=== PATIENT | male | born 1960 | race Caucasian/White ===

== ENCOUNTER → 2021-09-11 | Outpatient (CLI) | payer BC ==
[2021-09-11 15:09] LABS: Basophils # (A) 0.05 X 10*3/uL (0.00-0.10); Basophils % (A) 0.8 %; Eosinophils # (A) 0.27 X 10*3/uL (0.04-0.35); Eosinophils % (A) 4.3 %; HCT 45.2 % (39.6-50.0); HGB 14.6 g/dL (13.0-17.0); Immature Grans, Automated 0.3 %; Lymphocytes # (A) 1.43 X 10*3/uL (0.90-5.00); Lymphocytes % (A) 22.9 %; MCH 29.7 pg (27.0-32.0); MCHC 32.3 g/dL (32.0-37.0); MCV 91.9 fL (80.0-97.0); Monocytes # (A) 0.77 X 10*3/uL (0.20-1.00); Monocytes % (A) 12.3 %; NRBC Per 100 WBC 0 /100 WBCS (0.0-0.0); Neutrophils # (A) 3.71 X 10*3/uL (1.80-7.70); Neutrophils % (A) 59.4 %; Platelet Count 278 X 10*3/uL (140-440); RBC 4.92 X 10*6/uL (4.40-5.60); RDW 13.5 % (11.5-14.5); WBC 6.25 X 10*3/uL (4.50-10.00)
[2021-09-11 15:10] LABS: African American GFR (CKD) 95.1 (60.0-200.0); Anion Gap 11.3 mmol/L (10.00-18.00); BUN/Creat Ratio 14.5 Ratio (12.00-20.00); Blood Urea Nitrogen 14.5 mg/dL (9.0-27.0); Calcium 9.5 mg/dL (8.7-10.3); Carbon Dioxide 25.7 mmol/L (20.0-27.5); Potassium 4.9 mmol/L (3.5-5.5)
== END | disposition home or self-care (01) ==
LOC: LABPAT 09:30
PROVIDERS: ATTEND Urology
DX: Z01.812 Encounter for preprocedural laboratory examination (principal); N40.1 Benign prostatic hyperplasia with lower urinary tract symptoms
CPT/HCPCS: 36415; 80048; 85025

== ENCOUNTER 2021-09-16 12:30 | Day surgery (SDC) | payer BC ==
[2021-09-14 12:09] VITALS: BMI 25.0
--- NOTE | 2021-09-16 07:49 | P.GSHP ---
History of Present Illness H&P Date: 09/16/21 Chief Complaint: Weak urinary stream The patient is a 61-year-old white male with obstructive voiding symptoms. Specifically, he reports diminished urinary stream, hesitancy, and straining. The postvoid residuals 233 mL despite taking tamsulosin. The tamsulosin causes dizziness. The patient was offered alternative treatment options, including an alternative alpha-emily, 5 alpha reductase inhibitor, minimally invasive therapies, and transurethral resection of the prostate (TURP). After weighing the pros and cons of each option, he has elected to undergo the latter. - Gastrointestinal Gastrointestinal: Reports heartburn - Genitourinary (Male) Genitourinary: Reports as per HPI Past Medical History Past Medical History: GERD/Reflux, Prostate Disorder Additional Past Medical History / Comment(s): ENLARGED PROSTATE History of Any Multi-Drug Resistant Organisms: None Reported Past Surgical History: Appendectomy, Back Surgery, Joint Replacement Additional Past Surgical History / Comment(s): BILAT NICHOLE. COLONOSCOPY/EGD Past Anesthesia/Blood Transfusion Reactions: No Reported Reaction Smoking Status: Never smoker - Past Family History Father Family Medical History: Cancer Additional Family Medical History / Comment(s): LUNG Medications and Allergies Home Medications Medication Instructions Recorded Confirmed Type Dexlansoprazole [Dexilant] 60 mg PO DAILY 09/14/21 09/14/21 History Tamsulosin [Flomax] 0.4 mg PO DAILY 09/14/21 09/14/21 History Allergies Allergy/AdvReac Type Severity Reaction Status Date / Time No Known Allergies Allergy Verified 09/14/21 12:04 Surgical - Exam - General well developed, well nourished, no distress - Respiratory normal respiratory effort - Abdomen Abdomen: soft, non tender, no guarding, no rigid, no rebound - Genitourinary normal penis with no external lesions, testicles non-tender - Rectum Normal anal sphincter tone, no rectal masses. The prostate is moderately enlarged but smooth. - Psychiatric oriented to time, oriented to person, oriented to place, speech is normal, memory intact Assessment and Plan (1) Benign prostatic hyperplasia with lower urinary tract symptoms Status: Acute Code(s): N40.1 - BENIGN PROSTATIC HYPERPLASIA WITH LOWER URINARY TRACT SYMP SNOMED Code(s): 282723033 Plan: Cystoscopy, TURP: I discussed the options concerning surgery versus medication. I advised him with regard to TURP as opposed to minimally invasive procedures such as Urolift and TUMT. Potential risks were discussed, including anesthesia, bleeding, infection, retrograde ejaculation, incontinence, erectile dysfunction, and vesical neck contracture.
[~2021-09-16 12:30] MED LIST: LACTATED RINGERS 1,000 ML IV SCH
[2021-09-16] MEDS ORDERED: ONDANSETRON 4 MG/2 ML VIAL ONE (13:04)
[2021-09-16] MEDS ORDERED: DEXAMETHASONE SOD PHOSPHATE 4 MG/ML 1 ML VIAL IVP ONE (13:07)
[2021-09-16] MEDS ORDERED: ePHEDrine 50 MG/ML 1 ML VIAL ONE (13:16)
[2021-09-16] MEDS ORDERED: MIDAZOLAM 2 MG/2 ML VIAL ONE (13:16)
[2021-09-16] MEDS ORDERED: fentaNYL (PF) 50 MCG/ML 2 ML AMP ONE (13:16)
[2021-09-16] MEDS ORDERED: PROPOFOL 10 MG/ML 20 ML VIAL IV ONE (13:16)
[2021-09-16] MEDS ORDERED: SUCCINYLCHOLINE CHLORIDE 100 MG/5 ML SYR IV ONE (13:16)
[2021-09-16] MEDS ORDERED: ROCURONIUM 10 MG/ML (5 ML VIAL) IV ONE (13:16)
[2021-09-16] MEDS ORDERED: LIDOCAINE 2% INJ 20 MG/ML (2 ML VIAL) ONE (13:16)
[2021-09-16] MEDS ORDERED: LACTATED RINGERS 1,000 ML IV ONE (14:29)
[2021-09-16 15:04] VITALS: TEMP 96.9
--- NOTE | 2021-09-16 15:14 | P.OP ---
Date of Procedure: 09/16/21 Preoperative Diagnosis: BPH with obstruction Postoperative Diagnosis: Same Procedure(s) Performed: Cystoscopy, bipolar transurethral resection of prostate (TURP) Anesthesia: JG Surgeon: Leon Khan Estimated Blood Loss (ml): 30 IV fluids (ml): 1,000 Pathology: other (Prostate chips) Condition: stable Disposition: PACU Indications for Procedure: The patient is a 61-year-old white male with obstructive voiding symptoms. Specifically, he reports diminished urinary stream, hesitancy, and straining. The postvoid residual was 233 mL despite taking tamsulosin. The tamsulosin causes dizziness, and he was unable to tolerate alfuzosin. The patient was offered alternative treatment options, including an alternative alpha-emily, 5 alpha reductase inhibitor, minimally invasive therapies, and transurethral resection of the prostate (TURP). After weighing the pros and cons of each option, he has elected to undergo the latter. Operative Findings: Trilobar BPH with obstructing median lobe. Description of Procedure: The patient was taken in the operating room and placed in the dorsolithotomy position. The external genitalia was prepped and draped sterilely. The 25- [place] ACMI resectoscope sheath was introduced into the bladder. The bladder was inspected. Both ureteral orifices were of normal anatomic location and configuration, and clear urine effluxed from both. No tumors or foreign bodies were seen. Examination of the prostate revealed complete obstruction with a trilobar configuration. Using the bipolar cutting loop, the prominent median lobe was resected. Next, the lateral lobes were resected down to the surgical capsule. The floor of the prostate was then resected, proximal to the verumontanum. The anterior tissue was not resected, as the prostatic fossa was wide open. The residual apical tissue was then carefully resected, with care taken to avoid injury to the external urinary sphincter. The resection was carried down to the surgical capsule in all areas of resection. The prostatic fossa was then carefully examined, and any areas of bleeding were controlled with electrocautery. Excellent hemostasis was attained. The resectoscope was withdrawn into the bulbous urethra. The external urinary sphincter remained intact. The Pipeliner CRM evacuator was used to remove all prostate chips from the bladder. These were saved and sent for pathologic examination. The resectoscope was removed, and an 18 [place] Ortiz catheter was placed. The return was essentially clear. The patient tolerated the procedure well was taken to the recovery room in stable condition.
[2021-09-16 15:38] VITALS: RESP 18
[2021-09-16 16:11] VITALS: BP 141/73; PULSE 78
[2021-09-16] MEDS ORDERED: ACETAMINOPHEN TAB 500 MG TAB ONE (16:24)
== END 2021-09-16 17:12 | disposition home or self-care (01) ==
LOC: OR 12:30
PROVIDERS: ATTEND Urology
DX: N40.1 Benign prostatic hyperplasia with lower urinary tract symptoms (principal); N13.8 Other obstructive and reflux uropathy; K21.9 Gastro-esophageal reflux disease without esophagitis; Z90.49 Acquired absence of other specified parts of digestive tract
CPT/HCPCS: 52601; 88305; J2250; J1100; J0690; J2405; J3010; J0330; J2704; J2001

== ENCOUNTER → 2021-11-27 | Outpatient (CLI) | payer BC ==
--- NOTE | 2021-11-27 08:56 | CT ---
EXAMINATION TYPE: CT foot LT wo con CT DLP: 250.2 mGycm, Automated exposure control for dose reduction was used. DATE OF EXAM: 11/27/2021 7:06 AM COMPARISON: None CLINICAL INDICATION:Male, 61 years old with history of M25.572 Pain L ankle, Left lateral foot/ankle pain after injury. TECHNIQUE: Axial images were obtained of the left foot without the use of IV contrast. Additional co luis and sagittal reformatted images and soft tissue and bone window were obtained for review. 3-D r econstruction was created on a separate workstation. FINDINGS: Well-corticated osseous bodies are seen in the expected location of the anterior talofibula r ligament. This is favored to be sequela of prior injury. The posterior tibiofibular ligament appear s intact. Os peroneum is present within additional calcification which could also be an additional ac cessory ossicle versus sequela of remote injury. Calcaneus plantar spurring and Achilles enthesophyte are present. There is no evidence of fracture, subluxation, or dislocation. There is soft tissue declan ma throughout the foot. No focal muscular atrophy. No radiopaque foreign body identified. IMPRESSION: 1. No evidence of acute fracture. 2. Remote appearing injury to the anterior tibiofibular ligament 3. Mild soft tissue edema throughout the foot likely sequela of underlying soft tissue injury. Consi arturo MRI if clinically warranted.
== END | disposition home or self-care (01) ==
LOC: RADCTMAIN 06:43
PROVIDERS: ATTEND Orthopaedic Surgery
DX: S99.922A Unspecified injury of left foot, initial encounter (principal); M79.672 Pain in left foot

== ENCOUNTER 2022-01-27 07:29 | Emergency (ER) | payer BC ==
[2022-01-27 07:42] VITALS: TEMP 98.4
--- NOTE | 2022-01-27 07:45 | ED ---
General Adult HPI - General Chief complaint: Abdominal Pain Stated complaint: abd pain Time Seen by Provider: 01/27/22 07:45 Source: patient Mode of arrival: ambulatory Limitations: no limitations - History of Present Illness Initial comments: Patient is a 62-year-old male with past medical history remarkable for acid reflux who presents emergency Department complaining of left upper abdominal pain that started this morning. Describes it as an achy, throbbing sensation located in the left upper quadrant. Since to be just under his rib. Denies any trauma. Does have a history of appendectomy at a young age. No other abdominal surgeries. Has a history of intermittent constipation. Last bowel movement was 2 days ago and was nonbloody normal for him. Nurses mild nausea but no episodes of emesis. Denies any fevers, chills, cough. Denies any sick contacts. Denies any chest pain. Denies any shortness of breath. His no other acute complaints at this time. Presents for evaluation of his abdominal pain. No back pain. No dysuria or hematuria. - Related Data Home Medications Medication Instructions Recorded Confirmed Dexlansoprazole [Dexilant] 60 mg PO DAILY 09/14/21 01/27/22 Ibuprofen [Motrin] 800 mg PO Q8H PRN 01/27/22 01/27/22 Previous Rx's Medication Instructions Recorded Amoxic-Pot Clav 875-125Mg 1 tab PO Q12HR 5 Days #10 tab 01/27/22 [Augmentin 875-125] Dicyclomine [Bentyl] 10 mg PO TID PRN 7 Days #21 capsule 01/27/22 HYDROcodone/APAP 5-325MG [[place] 1 tab PO Q6HR PRN 3 Days #12 tab 01/27/22 5-325] Allergies Allergy/AdvReac Type Severity Reaction Status Date / Time No Known Allergies Allergy Verified 01/27/22 10:15 Review of Systems ROS Statement: Those systems with pertinent positive or pertinent negative responses have been documented in the HPI. Review of Systems: CONST: Denies fever EYES: Denies blurry vision ENT: Denies nasal congestion C/V: Denies Chest pain RESP: Denies shortness of breath GI: Endorses abdominal pain : Denies dysuria SKIN: Denies rash. MSK: Denies joint pain. NEURO: Denies headache ROS Other: All systems not noted in ROS Statement are negative. Past Medical History Past Medical History: GERD/Reflux History of Any Multi-Drug Resistant Organisms: None Reported Past Surgical History: Back Surgery, Orthopedic Surgery, Prostate Surgery Additional Past Surgical History / Comment(s): bilateral hips surgery Past Psychological History: No Psychological Hx Reported Smoking Status: Never smoker Past Alcohol Use History: Daily Past Drug Use History: None Reported General Exam - General Exam Comments Initial Comments: General: Appears in no acute distress. HEAD: Normal with no signs of head trauma. EYES: PERRLA, EOMI, conjunctiva normal, no discharge. ENT: Hearing grossly intact, normal oropharynx. RESPIRATORY: Clear breath sounds bilaterally. No wheezes, rales, or rhonchi. C/V: Regular rate and rhythm. S1 and S2 auscultated, no edema, peripheral pulses 2+ and intact throughout ABD: Abdomen soft, nondistended. Tender to palpation in the left upper/mid quadrant. Somewhat in the periumbilical region. No guarding. No rebound tenderness. No peritoneal signs. No CVA tenderness to percussion. EXT: Normal range of motion, no obvious deformity SKIN: No rashes or lesions observed on exposed skin. NEURO: Alert and oriented 4. Limitations: no limitations Course Vital Signs 01/27/22 01/27/22 07:40 11:12 Temperature 98.4 F Pulse Rate 91 67 Respiratory 16 20 Rate Blood Pressure 109/58 99/79 O2 Sat by Pulse 97 100 Oximetry Medical Decision Making - Medical Decision Making Based on the patient's presentation and physical exam, I'm concerned for acute intra-abdominal process for the patient's current pain. Cannot rule out atypical cardiac etiology, however lower suspicion. We'll obtain a screening EKG in addition to abdominal laboratory studies and imaging. Likely will require CT imaging. Patient will be symptomatically treated with IV fluids, analgesia, antiemetics. He was in agreement with this plan. Vital signs within normal limits. Screening EKG shows no signs of acute ischemia. Laboratory studies are remarkable for a mild leukocytosis of 15.4 which could be reactive. Remainder of the labs are unremarkable. Chest x-ray shows no acute cardiopulmonary process. KUB shows a single prominent small bowel loop in the mid to lower abdomen. I discussed the findings with the patient. Recommended CT abdomen and pelvis. He was in agreement this plan. Pain is under control at this time. Vital signs remained within normal limits. CT abdomen and pelvis showed mild inflammatory changes in the posterior right hemipelvis as well as ileal wall thickening at the terminal ileum. There is no free air. No abscess. No other obvious findings. Rediscussed the findings on CT of nonspecific for inflammatory changes. Could relate to colitis. No other findings at this time. Patient's pain is improved. Discussed discharge home due to abdominal pain of unknown etiology and he was i n agreement this plan. He will empirically be treated with antibiotics for possible colitis as well as given pain medications and Bentyl for home. He was in agreement this plan. Discussed strict return precautions. Will follow up with his physician in one to 3 days. I will provide the patient with a prescription for Bentyl, [place], Augmentin. I instructed the patient to follow up with their PCP in the next 1-3 days. I explained that the patient should return to the emergency department if they experience any worsening symptoms. Strict return precautions were discussed with the patient. The patient expressed understanding of these instructions. I answered all questions that the patient had. The patient was discharged home in good condition with their prescriptions and follow up information. - Lab Data Result diagrams: 01/27/22 08:10 01/27/22 08:10 Lab Results 01/27/22 01/27/22 01/27/22 Range/Units 08:10 08:10 08:10 WBC 15.4 H (3.8-10.6) k/uL RBC 4.81 (4.30-5.90) m/uL Hgb 14.6 (13.0-17.5) gm/dL Hct 43.7 (39.0-53.0) % MCV 90.9 (80.0-100.0) fL MCH 30.4 (25.0-35.0) pg MCHC 33.4 (31.0-37.0) g/dL RDW 12.4 (11.5-15.5) % Plt Count 382 (150-450) k/uL MPV 8.2 Neutrophils % 88 % Lymphocytes % 2 % Monocytes % 6 % Eosinophils % 4 % Basophils % 0 % Neutrophils # 13.5 H (1.3-7.7) k/uL Lymphocytes # 0.3 L (1.0-4.8) k/uL Monocytes # 0.9 (0-1.0) k/uL Eosinophils # 0.5 (0-0.7) k/uL Basophils # 0.0 (0-0.2) k/uL PT 10.4 (9.0-12.0) sec INR 1.0 (<1.2) APTT 25.4 (22.0-30.0) sec Sodium 136 L (137-145) mmol/L Potassium 4.2 (3.5-5.1) mmol/L Chloride 98 (98-107) mmol/L Carbon Dioxide 26 (22-30) mmol/L Anion Gap 12 mmol/L BUN 13 (9-20) mg/dL Creatinine 1.01 (0.66-1.25) mg/dL Est GFR (CKD-EPI)AfAm >90 (>60 ml/min/1.73 sqM) Est GFR (CKD-EPI)NonAf 81 (>60 ml/min/1.73 sqM) Glucose 155 H (74-99) mg/dL Plasma Lactic Acid Keegan (0.7-2.0) mmol/L Calcium 9.1 (8.4-10.2) mg/dL Total Bilirubin 0.9 (0.2-1.3) mg/dL AST 21 (17-59) U/L ALT 17 (4-49) U/L Alkaline Phosphatase 95 (38-126) U/L Total Protein 6.9 (6.3-8.2) g/dL Albumin 4.3 (3.5-5.0) g/dL Amylase 51 (30-110) U/L Lipase 36 (23-300) U/L Urine Color Urine Appearance (Clear) Urine pH (5.0-8.0) Ur Specific [place] (1.001-1.035) Urine Protein (Negative) Urine Glucose (UA) (Negative) Urine Ketones (Negative) Urine Blood (Negative) Urine Nitrite (Negative) Urine Bilirubin (Negative) Urine Urobilinogen (<2.0) mg/dL Ur Leukocyte Esterase (Negative) Urine RBC (0-5) /hpf Urine WBC (0-5) /hpf Ur Squamous Epith Cells (0-4) /hpf Urine Bacteria (None) /hpf Urine Mucus (None) /hpf 01/27/22 01/27/22 Range/Units 08:10 08:10 WBC (3.8-10.6) k/uL RBC (4.30-5.90) m/uL Hgb (13.0-17.5) gm/dL Hct (39.0-53.0) % MCV (80.0-100.0) fL MCH (25.0-35.0) pg MCHC (31.0-37.0) g/dL RDW (11.5-15.5) % Plt Count (150-450) k/uL MPV Neutrophils % % Lymphocytes % % Monocytes % % Eosinophils % % Basophils % % Neutrophils # (1.3-7.7) k/uL Lymphocytes # (1.0-4.8) k/uL Monocytes # (0-1.0) k/uL Eosinophils # (0-0.7) k/uL Basophils # (0-0.2) k/uL PT (9.0-12.0) sec INR (<1.2) APTT (22.0-30.0) sec Sodium (137-145) mmol/L Potassium (3.5-5.1) mmol/L Chloride (98-107) mmol/L Carbon Dioxide (22-30) mmol/L Anion Gap mmol/L BUN (9-20) mg/dL Creatinine (0.66-1.25) mg/dL Est GFR (CKD-EPI)AfAm (>60 ml/min/1.73 sqM) Est GFR (CKD-EPI)NonAf (>60 ml/min/1.73 sqM) Glucose (74-99) mg/dL Plasma Lactic Acid Keegan 2.0 (0.7-2.0) mmol/L Calcium (8.4-10.2) mg/dL Total Bilirubin (0.2-1.3) mg/dL AST (17-59) U/L ALT (4-49) U/L Alkaline Phosphatase (38-126) U/L Total Protein (6.3-8.2) g/dL Albumin (3.5-5.0) g/dL Amylase (30-110) U/L Lipase (23-300) U/L Urine Color Yellow Urine Appearance Cloudy (Clear) Urine pH 5.5 (5.0-8.0) Ur Specific [place] 1.025 (1.001-1.035) Urine Protein 2+ H (Negative) Urine Glucose (UA) Negative (Negative) Urine Ketones Trace H (Negative) Urine Blood Trace H (Negative) Urine Nitrite Negative (Negative) Urine Bilirubin 1+ H (Negative) Urine Urobilinogen 6.0 (<2.0) mg/dL Ur Leukocyte Esterase Trace H (Negative) Urine RBC 1 (0-5) /hpf Urine WBC 5 (0-5) /hpf Ur Squamous Epith Cells <1 (0-4) /hpf Urine Bacteria Rare H (None) /hpf Urine Mucus Many H (None) /hpf - EKG Data -: EKG Interpreted by Me EKG Comments: 12-lead Electrocardiogram Interpretation Note EKG was reviewed and interpreted by myself. 12-lead ECG performed at 0916 is interpreted by me as revealing sinus bradycardia at a rate of 57 beats per minute. Matthews is normal. NM interval is 163 ms, QRS duration is 86 ms, QTc is 464 milliseconds.. There were no ST or T wave abnormalities to suggest myocardial ischemia or injury. R wave progression across the precordium was satisfactory. By my interpretation this EKG is non-diagnostic for acute ischemia. Disposition Clinical Impression: Abdominal pain of unknown cause Narrative: suspected colitis Disposition: HOME SELF-CARE Condition: Good Instructions (If sedation given, give patient instructions): Abdominal Pain (ED), Colitis (ED) Prescriptions: Amoxic-Pot Clav 875-125Mg [Augmentin 875-125] 1 tab PO Q12HR 5 Days #10 tab Dicyclomine [Bentyl] 10 mg PO TID PRN 7 Days #21 capsule PRN Reason: Pain HYDROcodone/APAP 5-325MG [[place] 5-325] 1 tab PO Q6HR PRN 3 Days #12 tab PRN Reason: Pain Is patient prescribed a controlled substance at d/c from ED?: Yes When asked, does pt state using other controlled substances?: No If prescribed controlled substance>3 days was MAPS reviewed?: Prescribed <3 Days If opioid is for acute pain is fill amount 7 days or less?: No If Rx opioid, was Start Talking consent form obtained?: No Referrals: Sandee Boykin DO [Primary Care Provider] - 1-2 days Time of Disposition: 10:50
[2022-01-27] MEDS ORDERED: MORPHINE SULFATE 4 MG/ML SYRINGE IV STA (07:57)
[2022-01-27] MEDS ORDERED: SODIUM CHLORIDE 0.9% 1,000 ML IV STA (07:57)
[2022-01-27] MEDS ORDERED: PANTOPRAZOLE 40 MG/10 ML VIAL IVP STA (07:57)
[2022-01-27] MEDS ORDERED: ONDANSETRON 4 MG/2 ML VIAL IVP STA (07:57)
[2022-01-27 08:24] LABS: Basophils % (A) 0 %; Eosinophils # (A) 0.5 k/uL (0-0.7); Eosinophils % (A) 4 %; HCT 43.7 % (39.0-53.0); HGB 14.6 gm/dL (13.0-17.5); Lymphocytes # (A) 0.3 k/uL (1.0-4.8); Lymphocytes % (A) 2 %; MCH 30.4 pg (25.0-35.0); MCHC 33.4 g/dL (31.0-37.0); MCV 90.9 fL (80.0-100.0); Mean Platelet Volume 8.2; Monocytes # (A) 0.9 k/uL (0-1.0); Monocytes % (A) 6 %; Neutrophils # (A) 13.5 k/uL (1.3-7.7); Neutrophils % (A) 88 %; Platelet Count 382 k/uL (150-450); RBC 4.81 m/uL (4.30-5.90); RDW 12.4 % (11.5-15.5); WBC 15.4 k/uL (3.8-10.6)
[2022-01-27 08:32] LABS: Partial Thromboplastin Time 25.4 sec (22.0-30.0); Prothrombin Time 10.4 sec (9.0-12.0)
[2022-01-27 08:38] LABS: Appearance,Urine Cloudy (Clear); Bacteria,Urine Rare /hpf; Bilirubin,Urine 1+ (Negative); Blood,Urine Trace (Negative); Color,Urine Yellow; Glucose,Urine (UA) Negative (Negative); Ketones,Urine Trace (Negative); Leukocyte Esterase,Urine Trace (Negative); Mucus,Urine Many /hpf; Nitrite,Urine Negative (Negative); PH, Urine 5.5 (5.0-8.0); Protein,Urine 2+ (Negative); RBC,Urine 1 /hpf (0-5); Specific Gravity,Urine 1.025 (1.001-1.035); Squamous Epithelial Cell,Urine <1 /hpf (0-4); WBC,Urine 5 /hpf (0-5)
[2022-01-27 08:44] LABS: ALT 17 U/L (4-49); AST 21 U/L (17-59); African American GFR (CKD) >90 (>60 ml/min/1.73 sqM); Albumin 4.3 g/dL (3.5-5.0); Alkaline Phosphatase 95 U/L (38-126); Amylase 51 U/L (30-110); Anion Gap 12 mmol/L; Blood Urea Nitrogen 13 mg/dL (9-20); Calcium 9.1 mg/dL (8.4-10.2); Carbon Dioxide 26 mmol/L (22-30); Chloride 98 mmol/L (98-107); Glucose 155 mg/dL (74-99); Lipase 36 U/L (23-300); Non-African American GFR(CKD) 81 (>60 ml/min/1.73 sqM); Potassium 4.2 mmol/L (3.5-5.1); Sodium 136 mmol/L (137-145); Total Bilirubin 0.9 mg/dL (0.2-1.3); Total Protein 6.9 g/dL (6.3-8.2)
--- NOTE | 2022-01-27 08:55 | XR ---
EXAMINATION TYPE: XR chest 1V portable DATE OF EXAM: 01/27/2022 COMPARISON: NONE HISTORY: lower chest pain TECHNIQUE: Single frontal view of the chest is obtained. FINDINGS: There is no focal air space opacity, pleural effusion, or pneumothorax seen. The cardiac silhouette size is within normal limits. The osseous structures are intact. Hyperinflation of the l ungs. There is hypertrophic and degenerative change of the spine. No overt failure. IMPRESSION: No acute process. Correlate for COPD.
--- NOTE | 2022-01-27 09:00 | XR ---
EXAMINATION TYPE: XR KUB DATE OF EXAM: 01/27/2022 COMPARISON: NONE HISTORY: Pain TECHNIQUE: One view abdominal series FINDINGS: The osseous structures are intact. The bowel gas pattern is nonspecific. Lung bases are clear. Hyper trophic and degenerative change of the spine. Single prominent bowel loop in the midabdomen. Postsurg ical changes bilateral hip with osteitis pubis is antegrade. IMPRESSION: 1. Nonspecific abdomen. Single prominent small bowel loop in the mid to lower abdomen can be on the basis of localized ileus.
--- NOTE | 2022-01-27 10:38 | CT ---
EXAMINATION TYPE: CT abdomen pelvis w con DATE OF EXAM: 01/27/2022 COMPARISON: None INDICATION: left sided abdominal pain DLP: 1094.5 mGycm, Automated exposure control for dose reduction was used. CONTRAST: 100 mL of Isovue 300. Study performed without Oral Contrast TECHNIQUE: Axial images were obtained from above the diaphragm to the pubic rami in the axial plane a t 5 mm thick sections. Reconstructed images are reviewed on the computer in the coronal plane. FINDINGS: Limited CT sections are obtained the lung bases. The lung bases are clear. CT ABDOMEN: Liver: Normal Spleen: Normal Pancreas: Normal Adrenal glands: The adrenal glands are normal. Gallbladder: Normal Kidneys: No masses are evident. No hydronephrosis is present. No cysts are present. No renal stone s are evident. Post contrast imaging appears unremarkable. Aorta: Normal Inferior vena cava: Normal. CT PELVIS: Beam hardening artifact is in the lower pelvis secondary to bilateral hip prostheses. There are some mild inflammatory changes in the right lower quadrant posterior hemipelvis. This appea rs to be predominantly adjacent to the terminal ileum. Minimal terminal ileal wall thickening may be present. No clear identification of the appendix is evident. Scattered very tiny lymph nodes may be i n the right lower quadrant. Loops of bowel within the abdomen and pelvis are normal. This study is performed without oral con trast limits bowel evaluation. Fecal debris is within the descending colon region. Appendix: Not visualized. No suspicious dilated tubular structure or inflammatory change is evident. Urinary bladder: Limited in evaluation. Upper portions unremarkable Genitourinary structures: Prostate is not identified due to beam hardening artifact. Osseous structures: No suspicious lytic or sclerotic lesions. IMPRESSIONS: 1. Mild inflammatory change in the posterior right hemipelvis of uncertain etiology. The appendix is not identified. Minimal ileal wall thickening may be present at the terminal ileum. No abscess forma tion or free air is identified. Clinical correlation and management is recommended.
[2022-01-27] MEDS ORDERED: AMOXIC-POT CLAV 875-125MG 1 EACH TAB PO STA (10:55)
[2022-01-27] MEDS ORDERED: MORPHINE SULFATE 4 MG/ML SYRINGE IVP STA (11:12)
[2022-01-27 11:13] VITALS: BP 99/79; PULSE 67; RESP 20
== END 2022-01-27 17:33 | disposition home or self-care (01) ==
LOC: EC 07:29
DX: R10.12 Left upper quadrant pain (principal); K21.9 Gastro-esophageal reflux disease without esophagitis; Z79.899 Other long term (current) drug therapy
CPT/HCPCS: 36415; 93005; 80053; 82150; 83605; 83690; 85025; 85610; 85730; 81001; 71045; 74018; 74177; 99284; 96374; 96375 ×2; 96376; 96361; J2270; J2405; C9113; Q9967

== ENCOUNTER 2022-01-27 23:26 | Observation (INO) | payer BC ==
[2022-01-27] MEDS ORDERED: SODIUM CHLORIDE 0.9% 1,000 ML IV STA (23:55)
[2022-01-27] MEDS ORDERED: MORPHINE SULFATE 4 MG/ML SYRINGE IV STA (23:55)
--- NOTE | 2022-01-28 00:05 | ED ---
General Adult HPI - General Chief complaint: Abdominal Pain Stated complaint: Upper intestine infection, Left Rib Pain Time Seen by Provider: 01/27/22 23:50 Source: patient Mode of arrival: ambulatory - History of Present Illness Initial comments: Dictation was produced using [employer] dictation software. please excuse any grammatical, word or spelling errors. Chief Complaint: 62-year-old Sarah presents emergency department for worsening abdominal pain History of Present Illness: Patient is a 62-year-old male with past medical history of reflux. He was seen here in emergency department earlier today being evaluated for abdominal pain that started at 5:30 AM this morning. Patient was seen and evaluated. He had blood work and imaging studies. He did have some findings of inflammatory processes noted in the terminal ileum. Was sent home with diagnosis of colitis. He is given antibiotics and pain medications. Patient represents emergency department because his pain symptoms have been progressively worsened. She reports that his pain is to the left periumbilical area. denies any constitutional symptoms. The ROS documented in this emergency department record has been reviewed and confirmed by me. Those systems with pertinent positive or negative responses have been documented in the HPI. All other systems are other negative and/or noncontributory. PHYSICAL EXAM: General Impression: Alert and oriented x3, not in acute distress HEENT: Normocephalic atraumatic, extra-ocular movements intact, pupils equal and reactive to light bilaterally, mucous membranes moist. Cardiovascular: Heart regular rate and rhythm Chest: Able to complete full sentences, no retractions, no tachypnea Abdomen: Guarding, rigid, palpatory tenderness in the left mid abdomen Musculoskeletal: Pulses present and equal in all extremities, no peripheral edema Motor: no focal deficits noted Neurological: CN II-XII grossly intact, no focal motor or sensory deficits noted Skin: Intact with no visualized rashes Psych: Normal affect and mood ED course: 62-year-old male represents emergency department for worsening abdominal pain. Vital signs upon arrival are within acceptable limits. Abdominal exam concerning for surgical abdomen. Laboratory evaluation obtained. Leukocytosis 16.6. Rest of CBC unremarkable. Metabolic panel is negative. Abdominal x-ray was obtained showing no peritoneal air. Patient reevaluated at bedside. Patient still complaining of abdominal pain is given multiple doses of analgesics. Patient be admitted for intractable abdominal pain. Case discussed with Dr. Galicia who requests the patient be admitted to internal medicine with surgery on consult. - Related Data Home Medications Medication Instructions Recorded Confirmed Dexlansoprazole [Dexilant] 60 mg PO DAILY 09/14/21 01/27/22 Ibuprofen [Motrin] 800 mg PO Q8H PRN 01/27/22 01/27/22 Previous Rx's Medication Instructions Recorded Amoxic-Pot Clav 875-125Mg 1 tab PO Q12HR 5 Days #10 tab 01/27/22 [Augmentin 875-125] Dicyclomine [Bentyl] 10 mg PO TID PRN 7 Days #21 capsule 01/27/22 HYDROcodone/APAP 5-325MG [[place] 1 tab PO Q6HR PRN 3 Days #12 tab 01/27/22 5-325] Allergies Allergy/AdvReac Type Severity Reaction Status Date / Time No Known Allergies Allergy Verified 01/27/22 23:42 Review of Systems ROS Statement: Those systems with pertinent positive or pertinent negative responses have been documented in the HPI. ROS Other: All systems not noted in ROS Statement are negative. Past Medical History Past Medical History: GERD/Reflux History of Any Multi-Drug Resistant Organisms: None Reported Past Surgical History: Back Surgery, Orthopedic Surgery, Prostate Surgery Additional Past Surgical History / Comment(s): bilateral hips surgery Past Psychological History: No Psychological Hx Reported Smoking Status: Never smoker Past Alcohol Use History: Daily Past Drug Use History: None Reported Course Vital Signs 01/27/22 23:36 Temperature 98.7 F Pulse Rate 88 Respiratory 18 Rate Blood Pressure 137/80 O2 Sat by Pulse 97 Oximetry Medical Decision Making - Lab Data Result diagrams: 01/28/22 00:03 01/28/22 00:03 Lab Results 01/28/22 01/28/22 Range/Units 00:03 00:03 WBC 16.6 H (3.8-10.6) k/uL RBC 4.53 (4.30-5.90) m/uL Hgb 13.9 (13.0-17.5) gm/dL Hct 41.6 (39.0-53.0) % MCV 91.7 (80.0-100.0) fL MCH 30.7 (25.0-35.0) pg MCHC 33.5 (31.0-37.0) g/dL RDW 12.6 (11.5-15.5) % Plt Count 389 (150-450) k/uL MPV 8.1 Neutrophils % 87 % Lymphocytes % 4 % Monocytes % 6 % Eosinophils % 2 % Basophils % 0 % Neutrophils # 14.5 H (1.3-7.7) k/uL Lymphocytes # 0.6 L (1.0-4.8) k/uL Monocytes # 1.0 (0-1.0) k/uL Eosinophils # 0.3 (0-0.7) k/uL Basophils # 0.1 (0-0.2) k/uL Sodium 137 (137-145) mmol/L Potassium 4.7 (3.5-5.1) mmol/L Chloride 94 L (98-107) mmol/L Carbon Dioxide 28 (22-30) mmol/L Anion Gap 15 mmol/L BUN 14 (9-20) mg/dL Creatinine 0.89 (0.66-1.25) mg/dL Est GFR (CKD-EPI)AfAm >90 (>60 ml/min/1.73 sqM) Est GFR (CKD-EPI)NonAf >90 (>60 ml/min/1.73 sqM) Glucose 132 H (74-99) mg/dL Calcium 9.2 (8.4-10.2) mg/dL Total Bilirubin 0.6 (0.2-1.3) mg/dL AST 21 (17-59) U/L ALT 17 (4-49) U/L Alkaline Phosphatase 91 (38-126) U/L Total Protein 6.9 (6.3-8.2) g/dL Albumin 4.3 (3.5-5.0) g/dL Disposition Clinical Impression: Intractable abdominal pain Disposition: ADMITTED IP TO THIS [facility] Condition: Serious Referrals: Sandee Boykin DO [Primary Care Provider] - 1-2 days Decision Time: 01:59
[2022-01-28 00:17] LABS: Basophils # (A) 0.1 k/uL (0-0.2); Basophils % (A) 0 %; Eosinophils # (A) 0.3 k/uL (0-0.7); Eosinophils % (A) 2 %; HCT 41.6 % (39.0-53.0); HGB 13.9 gm/dL (13.0-17.5); Lymphocytes # (A) 0.6 k/uL (1.0-4.8); Lymphocytes % (A) 4 %; MCH 30.7 pg (25.0-35.0); MCHC 33.5 g/dL (31.0-37.0); MCV 91.7 fL (80.0-100.0); Mean Platelet Volume 8.1; Monocytes % (A) 6 %; Neutrophils # (A) 14.5 k/uL (1.3-7.7); Neutrophils % (A) 87 %; Platelet Count 389 k/uL (150-450); RBC 4.53 m/uL (4.30-5.90); RDW 12.6 % (11.5-15.5); WBC 16.6 k/uL (3.8-10.6)
[2022-01-28 00:38] LABS: ALT 17 U/L (4-49); AST 21 U/L (17-59); African American GFR (CKD) >90 (>60 ml/min/1.73 sqM); Albumin 4.3 g/dL (3.5-5.0); Alkaline Phosphatase 91 U/L (38-126); Anion Gap 15 mmol/L; Blood Urea Nitrogen 14 mg/dL (9-20); Calcium 9.2 mg/dL (8.4-10.2); Carbon Dioxide 28 mmol/L (22-30); Chloride 94 mmol/L (98-107); Glucose 132 mg/dL (74-99); Non-African American GFR(CKD) >90 (>60 ml/min/1.73 sqM); Potassium 4.7 mmol/L (3.5-5.1); Sodium 137 mmol/L (137-145); Total Bilirubin 0.6 mg/dL (0.2-1.3); Total Protein 6.9 g/dL (6.3-8.2)
[2022-01-28] MEDS ORDERED: HYDROmorphone 1 MG/ML 1 ML SYRINGE IVP STA (01:02)
--- NOTE | 2022-01-28 01:22 | XR ---
EXAMINATION TYPE: XR abdomen acute w cxr DATE OF EXAM: 01/27/2022 COMPARISON: Yesterday HISTORY: Abdominal pain TECHNIQUE: 4 views FINDINGS: There is some blunting of the costophrenic angles. There is linear density at the lung base s. Heart size is normal. There are no hilar masses. There is no sign of intestinal obstruction or pneumoperitoneum. Fecal pattern is normal. No evidence of a mass. No pathologic calcification over the kidneys. There is bilateral hip prosthesis. IMPRESSION: Nonacute abdomen. Mild pleural reaction and atelectasis at the lung bases which appears n ew compared to yesterday.
[2022-01-28] MEDS ORDERED: ACETAMINOPHEN TAB 325 MG TAB PO PRN (01:57)
[2022-01-28] MEDS ORDERED: NALOXONE 0.4 MG/ML 1 ML VIAL IV PRN (01:57)
[2022-01-28] MEDS ORDERED: ONDANSETRON 4 MG/2 ML VIAL IVP PRN (01:57)
[2022-01-28] MEDS: HYDROmorphone 1 MG/ML 1 ML SYRINGE IVP PRN ×5 (03:24→19:32)
[2022-01-28] MEDS: SODIUM CHLORIDE 0.9% 1,000 ML IV SCH ×3 (03:25→17:21)
[2022-01-28] MEDS ORDERED: KETOROLAC 15 MG/ML 1 ML VIAL IM STA (04:58)
--- NOTE | 2022-01-28 06:09 | P.HPIM ---
History of Present Illness H&P Date: 01/28/22 Chief Complaint: abd pain 62 year old male with GERD. patient comes back to the ED for worsening abd pain. he initially came in the morning for LUQ abd pain , CT of the abd showed possible colitis in the terminal ilium , patient discharged form the ED on antibiotics , and pain killers. however, he returns due to worsening abd pain , he describes sharp severe LUQ abd pain radiates down his flank. associated with nausea , but denies any vomiting, diarrhea ,or GI bleed. he denies any similar pain in the past. pain is so severe, patient feels it gets worse with any movement or even breathing . he deneis any fever, chills, or GI bleeding denies any trauma. repeat imaging with xray , did not show any air under the diaphragm ,. blood work showed leukocytosis . last BM 2 days ago , but continue to pass gasses. patient denies heavy alcohol consumption or illicit drugs no history of kidney stone , or perforated bowels Review of Systems Pertinent positives as noted in HPI. All other systems were reviewed and are negative Past Medical History Past Medical History: GERD/Reflux History of Any Multi-Drug Resistant Organisms: None Reported Past Surgical History: Back Surgery, Orthopedic Surgery, Prostate Surgery Additional Past Surgical History / Comment(s): bilateral hips surgery Past Anesthesia/Blood Transfusion Reactions: No Reported Reaction Past Psychological History: No Psychological Hx Reported Smoking Status: Never smoker Past Alcohol Use History: Daily Past Drug Use History: None Reported - Past Family History family Additional Family Medical History / Comment(s): no reported cancer Medications and Allergies Home Medications Medication Instructions Recorded Confirmed Type Dexlansoprazole [Dexilant] 60 mg PO DAILY 09/14/21 01/27/22 History Amoxic-Pot Clav 875-125Mg 1 tab PO Q12HR 5 Days #10 tab 01/27/22 Rx [Augmentin 875-125] Dicyclomine [Bentyl] 10 mg PO TID PRN 7 Days #21 capsule 01/27/22 Rx HYDROcodone/APAP 5-325MG [[place] 1 tab PO Q6HR PRN 3 Days #12 tab 01/27/22 Rx 5-325] Ibuprofen [Motrin] 800 mg PO Q8H PRN 01/27/22 01/27/22 History Allergies Allergy/AdvReac Type Severity Reaction Status Date / Time No Known Allergies Allergy Verified 01/27/22 23:42 Physical Exam Vitals: Vital Signs Temp Pulse Pulse Resp BP BP Pulse Ox 01/28/22 03:12 98.4 F 85 18 145/91 97 01/28/22 01:59 98.8 F 84 18 128/83 95 01/27/22 23:36 98.7 F 88 18 137/80 97 Intake and Output 01/27/22 01/27/22 01/28/22 14:59 22:59 06:59 Other: Weight 86.183 kg Constitutional: patient is restless , in acute severe pain holding his left flank Eyes: Anicteric sclerae, moist conjunctiva, Pupils equal round reactive to light ENMT: NC/AT Oropharynx clear, no erythema, or exudates Neck: Supple, no masses, or JVD No carotid bruits No thyromegaly Lungs: Clear to auscultation Clear to percussion Normal respiratory effort, no accessory muscle use Cardiovascular: Heart regular in rate and rhythm, No murmurs, gallops, or rubs No peripheral edema Abdominal: rigid abd, with severe tenderness to palpation of the LUQ area. Normoactive bowel sounds No abdominal wall hernia noted Skin: Normal temperature, tone, texture, turgor No induration No subcutaneous nodules No rash, lesions No ulcers Extremities: No digital cyanosis No clubbing Pedal pulses intact and symmetrical Radial pulses intact and symmetrical No calf tenderness Psychiatric: Alert and oriented to person, place and time Appropriate affect fair judgement Neuro Muscles Strength 5/5 in all 4 extremities Sensation to light touch grossly present throughout Cranial nerves II-XII grossly intact No focal sensory deficits Lymphatics: no palpable cervical or supraclavicular , lymph nodes Results CBC & Chem 7: 01/28/22 00:03 01/28/22 00:03 Labs: Abnormal Lab Results - Last 24 Hours (Table) 01/28/22 01/28/22 Range/Units 00:03 00:03 WBC 16.6 H (3.8-10.6) k/uL Neutrophils # 14.5 H (1.3-7.7) k/uL Lymphocytes # 0.6 L (1.0-4.8) k/uL Chloride 94 L (98-107) mmol/L Glucose 132 H (74-99) mg/dL Thrombosis Risk Factor Assmnt - Choose All That Apply Each Factor Represents 1 point: Age 41-60 years Other Risk Factors: No Other congenital or acquired thrombophilia - If yes, enter type in comment: No Thrombosis Risk Factor Assessment Total Risk Factor Score: 1 Thrombosis Risk Factor Assessment Level: Low Risk Assessment and Plan Assessment: acute abd pain CT abd suggestive of possible colitis in terminal ilium Abd XR no evidence of air under diaphragm supportive care IVF hydration with normal saline pain control with opiates , and toradol PPI daily NPO general surgery consult , ED discussed the case with general surgery monitor vital signs zofran for N/V follow up cultures initiated empirically on zosyn IVPB Q8hrs DVT PPX mechanical full code
[2022-01-28] MEDS ORDERED: PANTOPRAZOLE 40 MG TABLET PO SCH (07:30)
[2022-01-28] MEDS: PIPERACILLIN-TAZOBACTAM 3.375 GM in SODIUM CHLORIDE 0.9% 100 ML IVPB SCH ×3 (07:42→23:33)
[2022-01-28] MEDS: KETOROLAC 15 MG/ML 1 ML VIAL IVP SCH ×3 (11:56→23:32)
[2022-01-28] MEDS ORDERED: MAGNESIUM HYDROXIDE 2,400 MG/10 ML CUP PO ONE (14:36)
[2022-01-28] MEDS ORDERED: LACTULOSE 20 GM/30 ML CUP PO ONE (14:37)
--- NOTE | 2022-01-28 14:55 | P.PN ---
Subjective Progress Note Date: 01/28/22 Hospital course: Patient is a very pleasant 62-year-old male with a past medical history of GERD. Patient underwent full evaluation in the emergency department. He was found to have leukocytosis with WBC count of 16.6. Abdominal x-ray revealing a nonacute abdomen. CT abdomen and pelvis revealed mild inflammatory changes in the posterior right hemipelvis of uncertain etiology concerning for colitis of the terminal ileum.patient started on IV antibiotics with Zosyn and gentle IV fluid hydration. Patient admitted under our services with consultation to general surgery. Physical exam: Patient seen and fully evaluated at I told him it was time for a year but occasionally neoplasia so he can't work with me at that 99, well a little more about that it is completelythe bedside this morning. He reports pain is now felt more in his back then it is in the front of his abdomen like it initially was and he denies any new complaints or concerns at this time. Vital signs reviewed and stable. General: Nontoxic, no distress and appears stated age. Derm: Skin warm and dry, normal coloration for ethnicity. Head: Atraumatic, normocephalic and symmetric. Eyes: EOMs intact, no lid lag, and anicteric sclera Mouth: no lip lesions, mucus membranes moist Cardiovascular: regular rate and rhythm with normal S1S2, no murmur, positive posterior tibial pulses bilaterally, and cap refill < 2 seconds. Lungs: Respirations even, regular, and unlabored on room air. Lungs CTA bilatera lly, no rhonchi, no rales, no wheezing, and no accessory muscle usage. Abdominal: soft, tenderness upon palpation to left upper and lower quadrant, no guarding, no appreciable organomegaly Ext: ROM intact. No gross muscle atrophy, no edema, no contractures Neuro: Speech clear, face symmetrical and CN II-XII grossly intact with no noted focal neuro deficits Psych: Alert and oriented to person, place, time, and situation. Appropriate and pleasant affect. Assessment and Plan of Care: Acute abdominal pain accompanied by nausea -Uncertain etiology concerning for possible colitis of terminal ileum. -NPO until diet is advanced by general surgery. -Symptomatic care and pain management. -IV fluid hydration -Empiric antibiotics with Zosyn. -PPI with Protonix. -General surgery consulted, appreciate further recommendations. CODE STATUS: Full code DVT prophylaxis: heparin Discussed with: patient and RN Anticipated discharge date: -[address]: home A total of 34 minutes was spent on the care of this complex patient more than 50% of the time was spent in counseling and care coordination. I reviewed the documentation as provided by the ABDULAZIZ above, who is the original author of this note. I agree with the documented assessment and plan, with the following changes: none Objective - Vital Signs Vital signs: Vital Signs Temp 98.2 F 01/28/22 07:54 Pulse 86 01/28/22 07:54 Resp 18 01/28/22 07:54 BP 135/77 01/28/22 07:54 Pulse Ox 89 L 01/28/22 07:54 FiO2 Intake & Output 01/27/22 01/28/22 01/28/22 18:59 06:59 18:59 Intake Total 390 Balance 390 Weight 86.183 kg Intake: Intake, IV Titration 390 Amount Sodium Chloride 0.9% 1, 390 000 ml @ 130 mls/hr IV . Q7H42M [facility]AS[facility] Rx#:[id number] Oral 0 Other: # Voids 1 - Labs CBC & Chem 7: 01/29/22 06:08 01/28/22 00:03 Labs: Abnormal Lab Results - Last 24 Hours (Table) 01/28/22 01/28/22 Range/Units 00:03 00:03 WBC 16.6 H (3.8-10.6) k/uL Neutrophils # 14.5 H (1.3-7.7) k/uL Lymphocytes # 0.6 L (1.0-4.8) k/uL Chloride 94 L (98-107) mmol/L Glucose 132 H (74-99) mg/dL
--- NOTE | 2022-01-28 15:57 | P.GSCN ---
History of Present Illness Consult date: 01/28/22 History of present illness: CHIEF COMPLAINT: Abdominal pain HISTORY OF PRESENT ILLNESS: This is a 62-year-old male who presented to the hospital with worsening left-sided abdominal pain. Patient initially presented to the ER on 01/27/2022 and had a computed tomography scan completed that showed mild inflammatory changes in the posterior right hemipelvis of uncertain etiology. The appendix is not identified. Minimal ileal wall thickening may be present at the terminal ileum. No abscess formation or free air identified. No evidence of kidney stones. Patient was discharged with antibiotics, Bentyl and pain medication for possible colitis. Patient states he did take the antibiotic and the [place] without improvement and presented back to the ER with worsening pain. Patient reports that the pain woke him up at 5:30 yesterday morning. Initially with again it was on the left side and also did have some back pain. He reports having nausea and some flatus. The denies any bowel movement for the past 4 days. He reports that he gets a colonoscopy every 5 years and his last colonoscopy was 4 years ago. He does have colon polyps. He also gets EGD completed due to his severe GERD. He did have elevated white count. He has been started on antibiotics. He denies any urinary symptoms. Denies any fever chills or sweats. He reports never having pain like this before. He does have surgical history of appendectomy. PAST MEDICAL HISTORY: See list. PAST SURGICAL HISTORY: Appendectomy. Prostate surgery. Back surgery. MEDICATIONS: See list. ALLERGIES: See list. SOCIAL HISTORY: No illicit drug use. REVIEW OF SYSTEMS: CONSTITUTIONAL: Denies fever or chills. HEENT: Denies blurred vision, vision changes, or eye pain. Denies hemoptysis ENDOCRINE: Denies heat or cold intolerance. CARDIOVASCULAR: Denies chest pain or pressure. RESPIRATORY: No shortness of breath. GASTROINTESTINAL: Denies abdominal pain. Denies nausea or vomiting. NEURO: Denies history of seizures. PSYCH: No depression or suicidal ideation HEMATOLOGIC: Denies bleeding disorders. LYMPHATIC: The patient denies any lumps and bumps around the neck. GENITOURINARY: Denies any blood in urine or increased urinary frequency. MUSCULOSKELETAL: Denies myalgias. Denies joint swelling. Denies decreased range of motion beyond patients baseline. SKIN: Denies pruitis. Denies rash. PHYSICAL EXAM: VITAL SIGNS: Reviewed GENERAL: Well-developed in no acute distress. HEENT: No sclera icterus. Extraocular movements grossly intact. Moist buccal mucosa. Head is atraumatic, normocephalic. Hears conversational speech. No nasal drainage. NECK: Supple without lymphadenopathy. CHEST: Non-labored respirations and equal bilateral excursions. CARDIOVASCULAR: Palpable 2+ radial pulses. ABDOMEN: Soft. Nondistended. Tenderness to palpation of the left side of the abdomen MUSCULOSKELETAL: No clubbing or cyanosis. NEUROLOGIC: No focal or lateralizing signs. Cranial nerves II through XII grossly intact. PSYCH: Appropriate affect. Alert and oriented to person, place and time. SKIN: Well perfused. Good skin turgor. LABORATORY DATA: WBC is 16.6 Hgb 13.9 platelets 389 Sodium 137 potassium is 4.7 creatinine 0.89 Glucose 132 LFTs normal IMAGING: Computed tomography scan as stated above Abdominal x-ray nonacute abdomen. Mild pleural reaction atelectasis at the lung bases which appear new compared to yesterday. ASSESSMENT: 1. Left-sided abdominal pain exact etiology unclear. Possibly due to Epiploic appendagitis and constipation 2. Leukocytosis 3. Constipation PLAN: -Toradol scheduled added for pain control and to help treat the Epiploic appen dagitis -Milk of magnesia and lactulose given to treat the constipation -Repeat CBC in a.m. -Start clear liquid diet -Continue supportive care -Encourage patient to ambulate Thank you for this consultation Physician Seating And Mobility Technologist note has been reviewed by physician. Signing provider agrees with the documented findings, assessment, and plan of care. Past Medical History Past Medical History: GERD/Reflux History of Any Multi-Drug Resistant Organisms: None Reported Past Surgical History: Back Surgery, Orthopedic Surgery, Prostate Surgery Additional Past Surgical History / Comment(s): bilateral hips surgery Past Anesthesia/Blood Transfusion Reactions: No Reported Reaction Past Psychological History: No Psychological Hx Reported Smoking Status: Never smoker Past Alcohol Use History: Daily Past Drug Use History: None Reported - Past Family History family Additional Family Medical History / Comment(s): no reported cancer Medications and Allergies Home Medications Medication Instructions Recorded Confirmed Type Dexlansoprazole [Dexilant] 60 mg PO DAILY 09/14/21 01/28/22 History Amoxic-Pot Clav 875-125Mg 1 tab PO Q12HR 5 Days #10 tab 01/27/22 01/28/22 Rx [Augmentin 875-125] Dicyclomine [Bentyl] 10 mg PO TID PRN 7 Days #21 capsule 01/27/22 01/28/22 Rx HYDROcodone/APAP 5-325MG [[place] 1 tab PO Q6HR PRN 3 Days #12 tab 01/27/22 10/10/14 Rx 5-325] Ibuprofen [Motrin] 800 mg PO Q8H PRN 01/27/22 01/28/22 History Allergies Allergy/AdvReac Type Severity Reaction Status Date / Time No Known Allergies Allergy Verified 01/28/22 06:39 Surgical - Exam Vital Signs Temp Pulse Resp BP Pulse Ox 98.7 F 88 18 137/80 97 01/27/22 23:36 01/27/22 23:36 01/27/22 23:36 01/27/22 23:36 01/27/22 23:36 Results - Labs 01/28/22 00:03 01/28/22 00:03 Abnormal Lab Results - Last 24 Hours (Table) 01/28/22 01/28/22 Range/Units 00:03 00:03 WBC 16.6 H (3.8-10.6) k/uL Neutrophils # 14.5 H (1.3-7.7) k/uL Lymphocytes # 0.6 L (1.0-4.8) k/uL Chloride 94 L (98-107) mmol/L Glucose 132 H (74-99) mg/dL Diabetes panel 01/28/22 Range/Units 00:03 Sodium 137 (137-145) mmol/L Potassium 4.7 (3.5-5.1) mmol/L Chloride 94 L (98-107) mmol/L Carbon Dioxide 28 (22-30) mmol/L BUN 14 (9-20) mg/dL Creatinine 0.89 (0.66-1.25) mg/dL Glucose 132 H (74-99) mg/dL Calcium 9.2 (8.4-10.2) mg/dL AST 21 (17-59) U/L ALT 17 (4-49) U/L Alkaline Phosphatase 91 (38-126) U/L Total Protein 6.9 (6.3-8.2) g/dL Albumin 4.3 (3.5-5.0) g/dL Calcium panel 01/28/22 Range/Units 00:03 Calcium 9.2 (8.4-10.2) mg/dL Albumin 4.3 (3.5-5.0) g/dL Pituitary panel 01/28/22 Range/Units 00:03 Sodium 137 (137-145) mmol/L Potassium 4.7 (3.5-5.1) mmol/L Chloride 94 L (98-107) mmol/L Carbon Dioxide 28 (22-30) mmol/L BUN 14 (9-20) mg/dL Creatinine 0.89 (0.66-1.25) mg/dL Glucose 132 H (74-99) mg/dL Calcium 9.2 (8.4-10.2) mg/dL Adrenal panel 01/28/22 Range/Units 00:03 Sodium 137 (137-145) mmol/L Potassium 4.7 (3.5-5.1) mmol/L Chloride 94 L (98-107) mmol/L Carbon Dioxide 28 (22-30) mmol/L BUN 14 (9-20) mg/dL Creatinine 0.89 (0.66-1.25) mg/dL Glucose 132 H (74-99) mg/dL Calcium 9.2 (8.4-10.2) mg/dL Total Bilirubin 0.6 (0.2-1.3) mg/dL AST 21 (17-59) U/L ALT 17 (4-49) U/L Alkaline Phosphatase 91 (38-126) U/L Total Protein 6.9 (6.3-8.2) g/dL Albumin 4.3 (3.5-5.0) g/dL
[2022-01-28] MEDS: HEPARIN SODIUM,PORCINE/PF 5,000 UNIT/0.5 ML SYRINGE SQ SCH ×2 (16:23→23:33)
[2022-01-28] MEDS: DEXILANT 60 MG PO SCH (17:00)
[2022-01-28] MEDS ORDERED: TAMSULOSIN 0.4 MG CAP.ER.24H PO SCH (18:30)
[2022-01-29 01:55] VITALS: RESP 16
[2022-01-29] MEDS: SODIUM CHLORIDE 0.9% 1,000 ML IV SCH ×3 (02:35→17:20)
[2022-01-29] MEDS: KETOROLAC 15 MG/ML 1 ML VIAL IVP SCH ×2 (05:44→12:29)
[2022-01-29] MEDS: PIPERACILLIN-TAZOBACTAM 3.375 GM in SODIUM CHLORIDE 0.9% 100 ML IVPB SCH ×2 (07:49→17:20)
[2022-01-29] MEDS: HEPARIN SODIUM,PORCINE/PF 5,000 UNIT/0.5 ML SYRINGE SQ SCH ×2 (07:49→17:20)
[2022-01-29] MEDS: DEXILANT 60 MG PO SCH (07:49)
[2022-01-29 08:51] LABS: Basophils # (A) 0.04 X 10*3/uL (0.00-0.10); Basophils % (A) 0.3 %; Eosinophils # (A) 0.35 X 10*3/uL (0.04-0.35); Eosinophils % (A) 2.4 %; HCT 36.3 % (39.6-50.0); HGB 11.6 g/dL (13.0-17.0); Immature Grans, Automated 0.7 %; Lymphocytes # (A) 0.37 X 10*3/uL (0.90-5.00); Lymphocytes % (A) 2.5 %; MCH 29.6 pg (27.0-32.0); MCV 92.6 fL (80.0-97.0); Mean Platelet Volume 9.9 fL (9.5-12.2); Monocytes # (A) 1.09 X 10*3/uL (0.20-1.00); Monocytes % (A) 7.4 %; NRBC Per 100 WBC 0 /100 WBCS (0.0-0.0); Neutrophils # (A) 12.81 X 10*3/uL (1.80-7.70); Neutrophils % (A) 86.7 %; Platelet Count 389 X 10*3/uL (140-440); RBC 3.92 X 10*6/uL (4.40-5.60); WBC 14.76 X 10*3/uL (4.50-10.00)
--- NOTE | 2022-01-29 13:11 | P.CNOR ---
History of Present Illness - [facility] Consult date: 01/29/22 Requesting physician: Pat Baltazar Consult reason: other (bone spur L4-L5, back pain) History of present illness: Patient is a 62-year-old male who presented the emergency department [place] 01/27/2022 with a chief complaint of worsening left-sided abdominal pain. Patient did present to the ER Tuesday morning and CT of abdomen showed potential colitis in ileum. Patient was sent home with antibiotics and pain medication. Patient did return to the ER Tuesday night due to worsening left-sided abdominal pain. Patient says this pain began to radiate to his left lower back in the flank region. Orthopedics has been consulted for bone spur on L4-L5 found on [facility] x-ray. Patient says he has had previous bilateral total hip replacements as well as microdiscectomy at L5-S1. Patient currently states that he does have some left-sided flank pain that does sometimes radiate to the left lower quadrant in his abdomen. Patient denies any lower extremity paresthesias. Patient denies saddle anesthesia. Patient denies any bloody/tarry stools. Patient denies any hematuria/dysuria. Patient says his mother did have a history of kidney stones. Patient says he did have an episode of nausea on Tuesday, but he has felt okay since. Patient denies chest pain, fever, chest breath, vomiting, change in vision, loss of bowel/bladder control. Past Medical History Past Medical History: GERD/Reflux History of Any Multi-Drug Resistant Organisms: None Reported Past Surgical History: Back Surgery, Orthopedic Surgery, Prostate Surgery Additional Past Surgical History / Comment(s): bilateral hips surgery Past Anesthesia/Blood Transfusion Reactions: No Reported Reaction Past Psychological History: No Psychological Hx Reported Smoking Status: Never smoker Past Alcohol Use History: Daily Past Drug Use History: None Reported - Past Family History family Additional Family Medical History / Comment(s): no reported cancer Medications and Allergies Home Medications Medication Instructions Recorded Confirmed Type Dexlansoprazole [Dexilant] 60 mg PO DAILY 09/14/21 01/28/22 History Amoxic-Pot Clav 875-125Mg 1 tab PO Q12HR 5 Days #10 tab 01/27/22 01/28/22 Rx [Augmentin 875-125] Dicyclomine [Bentyl] 10 mg PO TID PRN 7 Days #21 capsule 01/27/22 01/28/22 Rx HYDROcodone/APAP 5-325MG [[place] 1 tab PO Q6HR PRN 3 Days #12 tab 01/27/22 01/28/22 Rx 5-325] Ibuprofen [Motrin] 800 mg PO Q8H PRN 01/27/22 01/28/22 History Allergies Allergy/AdvReac Type Severity Reaction Status Date / Time No Known Allergies Allergy Verified 01/28/22 06:39 Physical Examination Inspection: Negative for any open fractures, ulcers, significant ecchymosis/eryt genoveva. Sensation: Sensation is equal, symmetric, bilaterally intact in the upper and lower extremities. Palpation: mild TTP over left flank region. NTTP throughout rest of exam ROM: Full ROM in bilateral upper and lower extremities Motor: 5/5 in all major motor groups in BUE and BLE Neurovascular: radial pulses intact, 2+ bilaterally; cap refill <3 sec in digits of UE Special tests: negative Homans bilaterally; negative clonus bilaterally; negative hoffmans bilaterally Results - Labs Labs: Abnormal Lab Results - Last 24 Hours (Table) 01/29/22 Range/Units 06:08 WBC 14.76 H (4.50-10.00) X 10*3/uL RBC 3.92 L (4.40-5.60) X 10*6/uL Hgb 11.6 L (13.0-17.0) g/dL Hct 36.3 L (39.6-50.0) % Immature Gran # 0.10 H (0.00-0.04) X 10*3/uL Neutrophils # 12.81 H (1.80-7.70) X 10*3/uL Lymphocytes # 0.37 L (0.90-5.00) X 10*3/uL Monocytes # 1.09 H (0.20-1.00) X 10*3/uL Microbiology - Last 24 Hours (Table) 01/28/22 00:50 Blood Culture - Preliminary Blood No Growth after 24 hours H & H 01/28/22 01/29/22 Range/Units 00:03 06:08 Hgb 13.9 11.6 L (13.0-17.5) gm/dL Hct 41.6 36.3 L (39.0-53.0) % Result Diagrams: 01/29/22 06:08 01/28/22 00:03 Assessment and Plan Assessment: 1. Left flank pain 2 - spondylosis lumbar spine; DDD Plan: 1. Left flank pain; spondylsis and DDD lumbar spine - [facility] x-ray does demonstrates spondylosis and degenerative disc disease in the lumbar spine. Patient has minimal tenderness to palpation throughout spine exam. Low concern for spine etiology of pain. No LE radiculopathy. Negative for saddle anesthesia. At this time are not recommending any emergent/urgent orthopedic surgical intervention. We do recommend conservative treatment at this time via the use of pain medication. Patient may follow-up in the outpatient setting with Dr. Valentin as needed. Patient is stable from an orthopedic standpoint for discharge home. At this time orthopedics is signing off. Please do not hesitate to contact us for any further questions. 2. Appreciate medical, urology, gen surg management 3. Pain management - tylenol; toradol 4. DVT ppx - heparin 5. GI recs 6. PT/OT - WBAT 7. Appreciate consult Time with Patient: Less than 30
[2022-01-29 14:58] VITALS: BP 111/63; PULSE 97; TEMP 99.5
--- NOTE | 2022-01-29 15:39 | P.PN ---
Subjective Progress Note Date: 01/29/22 CHIEF COMPLAINT: Left back and abdominal pain HISTORY OF PRESENT ILLNESS: Patient reports improvement in his back and abdominal pain. He did have multiple bowel movements with the laxatives. He is tolerating advancement of diet. Denies any nausea or vomiting. There were concerns of possible bone spur in the lumbar spine L4 and L5 and consult placed for orthopedic service. Patient denies any pain radiating to his leg. He reports that he is urinating easier. Denies any difficulty walking. He is afebrile. WBC did decrease from 16.6-14.76. PHYSICAL EXAM: VITAL SIGNS: Reviewed GENERAL: Well-developed in no acute distress. HEENT: No sclera icterus. Extraocular movements grossly intact. Moist buccal mucosa. Head is atraumatic, normocephalic. Hears conversational speech. No nasal drainag e. NECK: Supple without lymphadenopathy. CHEST: Non-labored respirations and equal bilateral excursions. CARDIOVASCULAR: Palpable 2+ radial pulses. ABDOMEN: Soft. Nondistended. Nontender. Tenderness with palpation of the left flank MUSCULOSKELETAL: No clubbing or cyanosis. NEUROLOGIC: No focal or lateralizing signs. Cranial nerves II through XII grossly intact. PSYCH: Appropriate affect. Alert and oriented to person, place and time. SKIN: Well perfused. Good skin turgor. ASSESSMENT: 1. Left-sided abdominal pain and back pain exact etiology unclear. Possibly due to Epiploic appendagitis and constipation 2. Leukocytosis 3. Constipation 4. Minimal ileal wall thickening may be present at the terminal ileum 5. Back pain and Bone spur located L4-L5 evaluated by orthopedic service PLAN: -No surgical intervention planned -Patient's pain has improved. He is tolerating diet. Patient is stable from surgical standpoint for discharge Physician Account Auditor note has been reviewed by physician. Signing provider agrees with the documented findings, assessment, and plan of care. Objective - Vital Signs Vital signs: Vital Signs Temp 99.5 F 01/29/22 14:00 Pulse 97 01/29/22 14:00 Resp 16 01/29/22 14:00 BP 111/63 01/29/22 14:00 Pulse Ox 95 01/29/22 14:00 FiO2 Intake & Output 01/28/22 01/29/22 01/29/22 18:59 06:59 18:59 Intake Total 450 2720 Balance 450 2720 Intake: Intake, IV Titration 1760 Amount Piperacillin-Tazobactam 3 200 .375 gm In Sodium Chloride 0.9% 100 ml @ 25 mls/hr IVPB Q8HR [facility] Rx# :[id number] Sodium Chloride 0.9% 1, 1560 000 ml @ 130 mls/hr IV . Q7H42M [facility] Rx#:[id number] Oral 450 960 Other: # Voids 3 2 - Labs CBC & Chem 7: 01/29/22 06:08 01/28/22 00:03 Labs: Abnormal Lab Results - Last 24 Hours (Table) 01/29/22 Range/Units 06:08 WBC 14.76 H (4.50-10.00) X 10*3/uL RBC 3.92 L (4.40-5.60) X 10*6/uL Hgb 11.6 L (13.0-17.0) g/dL Hct 36.3 L (39.6-50.0) % Immature Gran # 0.10 H (0.00-0.04) X 10*3/uL Neutrophils # 12.81 H (1.80-7.70) X 10*3/uL Lymphocytes # 0.37 L (0.90-5.00) X 10*3/uL Monocytes # 1.09 H (0.20-1.00) X 10*3/uL Microbiology - Last 24 Hours (Table) 01/28/22 00:50 Blood Culture - Preliminary Blood No Growth after 24 hours
--- NOTE | 2022-01-29 16:35 | P.DS ---
Providers Date of admission: 01/28/22 01:57 Expected date of discharge: 01/29/22 Attending physician: Juan M Moran MD Consults: 01/28/22 01:57 Consult Physician Routine Consulting Provider: Nelly Galicia Consult Reason/Comments: intractable abdominal pain Do you want consulting provider notified?: Already Contacted 01/29/22 10:42 Consult Physician Routine Consulting Provider: Osmar Valentin Consult Reason/Comments: bone spur L4-L5, back pain Do you want consulting provider notified?: Yes Primary care physician: Sandee Boykin Hospital Course: Discharge Diagnosis: Acute abdominal pain accompanied by nausea, resolved. Patient tolerating oral intake without any further episodes of nausea or vomiting. General surgery evaluated stating a possible appendagitis and clearing patient from surgical standpoint to follow-up outpatient in their office. L4 through L5 bone spur, symptomatic care and pain management with Tylenol and/or Motrin as needed. Recommend outpatient follow-up with orthopedic surgery in their office as needed. Hospital Course: Patient is a very pleasant 62-year-old male with a past medical history of GERD. He presented to the emergency department on 01/28/22 with a chief complaint of abdominal pain. He underwent full evaluation and was found to have leukocytosis with WBC count of 16.6. Abdominal x-ray revealing a nonacute abdomen. CT abdomen and pelvis revealed mild inflammatory changes in the posterior right hemipelvis of uncertain etiology concerning for colitis of the terminal ileum. Patient started on IV antibiotics with Zosyn and gentle IV fluid hydration. Patient admitted under our services with consultation to general surgery. He underwent evaluation by general surgery. General surgery stating possible appendagitis, but surgeon also stating pain possibly coming from small bone spur located at L4 through L5 and consulted orthopedic surgery team to evaluate. Orthopedic surgery evaluated and recommending conservative treatment with use of [id number] pain medications including Tylenol and/or Motrin as needed. Patient is medically stable at this time and is stable for discharge home. Patient to follow up outpatient with PCP, general surgery, and orthopedic surgery. Physical exam: Vital signs reviewed and stable. General: Nontoxic, no distress and appears stated age. Derm: Skin warm and dry, normal coloration for ethnicity. Head: Atraumatic, normocephalic and symmetric. Eyes: EOMs intact, no lid lag, and anicteric sclera Mouth: no lip lesions, mucus membranes moist Cardiovascular: regular rate and rhythm with normal S1S2, no murmur, positive posterior tibial pulses bilaterally, and cap refill < 2 seconds. Lungs: Respirations even, regular, and unlabored on room air. Lungs CTA bilaterally, no rhonchi, no rales, no wheezing, and no accessory muscle usage. Abdominal: soft, tenderness upon palpation to left upper and lower quadrant, no guarding, no appreciable organomegaly Ext: ROM intact. No gross muscle atrophy, no edema, no contractures Neuro: Speech clear, face symmetrical and CN II-XII grossly intact with no noted focal neuro deficits Psych: Alert and oriented to person, place, time, and situation. Appropriate and pleasant affect. A total of 32 minutes of time were spent preparing this complex discharge summary. Pt was discharged on 01/29/22 of 4:25 PM. Patient Condition at Discharge: Stable Plan - Discharge Summary Discharge Rx Participant: No New Discharge Prescriptions: New Tamsulosin [Flomax] 0.4 mg PO PC-SUPPER 30 Days #30 cap Continue Dicyclomine [Bentyl] 10 mg PO TID PRN 7 Days #21 capsule PRN Reason: Pain HYDROcodone/APAP 5-325MG [[place] 5-325] 1 tab PO Q6HR PRN 3 Days #12 tab PRN Reason: Pain Dexlansoprazole [Dexilant] 60 mg PO DAILY Ibuprofen [Motrin] 800 mg PO Q8H PRN PRN Reason: Pain Discontinued Amoxic-Pot Clav 875-125Mg [Augmentin 875-125] 1 tab PO Q12HR 5 Days #10 tab Discharge Medication List Dexlansoprazole [Dexilant] 60 mg PO DAILY 09/14/21 [History] Dicyclomine [Bentyl] 10 mg PO TID PRN 7 Days #21 capsule 01/27/22 [Rx] HYDROcodone/APAP 5-325MG [[place] 5-325] 1 tab PO Q6HR PRN 3 Days #12 tab 01/27/22 [Rx] Ibuprofen [Motrin] 800 mg PO Q8H PRN 01/27/22 [History] Tamsulosin [Flomax] 0.4 mg PO PC-SUPPER 30 Days #30 cap 01/29/22 [Rx] Follow up Appointment(s)/Referral(s): Sandee Boykin DO [Primary Care Provider] - 1-2 days Nelly Galicia MD [STAFF PHYSICIAN] - 1 Week Osmar Valentin DO [Doctor of Osteopathic Medicine] - 1 Week Patient Instructions/Handouts: Constipation (DC), High Fiber Diet (DC), Acute Abdominal Pain (DC) Activity/Diet/Wound Care/Special Instructions: Activity: As tolerated. Take breaks as needed. Diet: Resume regular diet Special Instructions: Take all of your medications as directed and remember to keep all of your doctor's appointments and follow-up as needed. Thank you for allowing us to participate in your care, it was truly a pleasure having you for our patient!!! Discharge Disposition: HOME SELF-CARE
== END 2022-01-29 17:18 | disposition home or self-care (01) ==
LOC: EC 23:26 → 4SSUR 01-28 01:57
PROVIDERS: ADMIT Internal Medicine; ATTEND Internal Medicine
DX: R10.9 Unspecified abdominal pain (principal); M46.06 Spinal enthesopathy, lumbar region; M47.816 Spondylosis without myelopathy or radiculopathy, lumbar region; M51.36 Other intervertebral disc degeneration, lumbar region; K21.9 Gastro-esophageal reflux disease without esophagitis; J98.11 Atelectasis; K59.00 Constipation, unspecified; Z79.899 Other long term (current) drug therapy; Z96.643 Presence of artificial hip joint, bilateral
CPT/HCPCS: 36415; 80053; 85025 ×2; 87040; 74022; G0378 ×2; J2543 ×2; J2270; J1170; J1885 ×2; J1644 ×2; 96361; 96365; 96366; 96372; 96375; 96376; 99285